=== PATIENT | female | born 1955 ===

== ENCOUNTER 2024-01-11 08:43 | Inpatient (IN) | payer OTHER ==
[~2024-01-11] VITALS: Wt 59.0 kg
[~2024-01-11 08:43] MED LIST: SIMVASTATIN5 MG; TENORMIN50 M1 PO; ZESTORETIC 20-1 EAC1 PO
[2024-01-19] MEDS ORDERED: DEXTROSE 50 % IN WATER 0.5 G/ML DISP.SYRIN IV PRN (15:45)
[2024-01-19] MEDS ORDERED: ONDANSETRON HCL 2 MG/ML VIAL IV PRN (15:45)
[2024-01-19] MEDS ORDERED: OxyCODONE HCL 5 MG TABLET (ROXICODONE) PO PRN (15:45)
[2024-01-19] MEDS ORDERED: MORPHINE SULFATE 4 MG/ML CARTRIDGE IV PRN (15:45)
[2024-01-19] MEDS ORDERED: 0.9 % SODIUM CHLORIDE 1,000 ML IV SCH (15:45)
[2024-01-19] MEDS ORDERED: GABAPENTIN 300 MG CAPSULE PO SCH (17:00)
[2024-01-19] MEDS ORDERED: POLYETHYLENE GLYCOL 3350 17 GM BLIST.PACK PO SCH (17:00)
[2024-01-19] MEDS ORDERED: HYOSCYAMINE SULFATE 0.125 MG TAB.SUBL SL SCH (17:00)
[2024-01-19] MEDS ORDERED: METRONIDAZOLE/SODIUM CHLORIDE 500 MG/100 ML PIGGYBACK IV SCH (17:00)
[2024-01-19] MEDS ORDERED: ENALAPRILAT DIHYDRATE 1.25 MG/ML VIAL IV PRN (17:45)
[2024-01-19] MEDS ORDERED: SUGAMMADEX SODIUM 200 MG/2 ML VIAL IV ONE (17:45)
[2024-01-19] MEDS ORDERED: BUPIVACAINE HCL 30 ML VIAL IJ ONE (18:15)
[2024-01-19] MEDS ORDERED: CEFTRIAXONE SODIUM 2,000 MG VIAL IV ONE (18:15)
[2024-01-19] MEDS ORDERED: LIDOCAINE HCL 1%/EPINEPHRINE 20ML VIAL IJ ONE (18:15)
[2024-01-19] MEDS ORDERED: METRONIDAZOLE/SODIUM CHLORIDE 500 MG/100 ML PIGGYBACK IV ONE (18:15)
[2024-01-19 19:48] LABS: HEMOGLOBIN 13.2 g/dL (12.0-15.00); MEAN CORPUSCULAR HEMOGLOBIN 31.8 pg (27.00-32.0); MEAN CORPUSCULAR HGB CONC 35.7 g/dl (32.0-36.0); PLATELET COUNT 192 K/uL (150-450); RED BLOOD COUNT 4.16 M/uL (4.00-6.00); RED CELL DISTRIBUTION WIDTH 12.8 % (11.5-14.5)
[2024-01-19] MEDS ORDERED: ACETAMINOPHEN 500 MG GEL..CAP PO SCH (20:00)
[2024-01-19 20:36] LABS: ALBUMIN 3.4 gm/dL (3.4-5.0); CALCIUM 8.4 mg/dL (8.5-10.1); CREATININE SERUM 0.62 mg/dL (0.55-1.02); GFR 95.72; MAGNESIUM 1.5 mg/dL (1.8-2.4); PHOSPHOROUS 3.3 mg/dL (2.5-4.9)
[2024-01-19 20:39] LABS: POTASSIUM 2.88 mEq/L (3.5-5.1)
[2024-01-19] MEDS ORDERED: POTASSIUM CHLORIDE 20MEQ/100ML H2O PB IV ONE (20:45)
[2024-01-19] MEDS ORDERED: FAMOTIDINE/PF 20 MG/2 ML VIAL IV PUSH SCH (21:00)
[2024-01-19] MEDS ORDERED: CELECOXIB 200 MG CAPSULE PO SCH (21:00)
[2024-01-19] MEDS ORDERED: MORPHINE SULFATE 4 MG/ML VIAL IV ONE (21:30)
[2024-01-20 01:21] VITALS: BP 140/61; O2SAT 100
[2024-01-20 06:59] LABS: HEMATOCRIT 34.4 % (36.0-45.00); HEMOGLOBIN 12.4 g/dL (12.0-15.00); MEAN CELL VOLUME 88.4 fL (80.00-100.00); MEAN CORPUSCULAR HEMOGLOBIN 31.9 pg (27.00-32.0); MEAN CORPUSCULAR HGB CONC 36.1 g/dl (32.0-36.0); PLATELET COUNT 172 K/uL (150-450); RED BLOOD COUNT 3.89 M/uL (4.00-6.00); RED CELL DISTRIBUTION WIDTH 12.7 % (11.5-14.5)
[2024-01-20 08:00] VITALS: BP 142/62; O2SAT 98
[2024-01-20 08:19] LABS: CALCIUM 7.8 mg/dL (8.5-10.1); CREATININE SERUM 0.57 mg/dL (0.55-1.02); GFR 105.48; PHOSPHOROUS 3.9 mg/dL (2.5-4.9); POTASSIUM 3.22 mEq/L (3.5-5.1)
[2024-01-20 08:26] LABS: MAGNESIUM 1.4 mg/dL (1.8-2.4)
[2024-01-20] MEDS ORDERED: LISINOPRIL 20 MG TABLET PO SCH (09:00)
[2024-01-20] MEDS ORDERED: HYDROCHLOROTHIAZIDE 25 MG TABLET PO SCH (09:00)
[2024-01-20] MEDS ORDERED: ATENOLOL 50 MG TABLET PO SCH (09:00)
[2024-01-20] MEDS ORDERED: POTASSIUM CHLORIDE 20MEQ/100ML H2O PB IV NR (11:00)
[2024-01-20] MEDS ORDERED: MAGNESIUM SULFATE IN WATER 50 ML IV NR (11:00)
[2024-01-20 16:00] VITALS: BP 118/60; O2SAT 97
[2024-01-20] MEDS ORDERED: SIMVASTATIN 10 MG TABLET PO SCH (17:00)
[2024-01-20] MEDS ORDERED: ENOXAPARIN SODIUM 40 MG/0.4 ML SYRINGE SUBCUTANEO SCH (17:00)
[2024-01-21 01:58] VITALS: BP 99/61; O2SAT 95
[2024-01-21 07:43] LABS: CALCIUM 7.7 mg/dL (8.5-10.1); CREATININE SERUM 0.45 mg/dL (0.55-1.02); GFR 138.56; MAGNESIUM 1.8 mg/dL (1.8-2.4); POTASSIUM 3.02 mEq/L (3.5-5.1)
[2024-01-21 07:56] LABS: HEMATOCRIT 31.2 % (36.0-45.00); HEMOGLOBIN 11.2 g/dL (12.0-15.00); MEAN CELL VOLUME 89.2 fL (80.00-100.00); MEAN CORPUSCULAR HGB CONC 35.8 g/dl (32.0-36.0); PLATELET COUNT 164 K/uL (150-450); RED BLOOD COUNT 3.49 M/uL (4.00-6.00); RED CELL DISTRIBUTION WIDTH 12.9 % (11.5-14.5)
[2024-01-21 08:00] VITALS: BP 170/70; O2SAT 98
[2024-01-21 08:01] LABS: PHOSPHOROUS 1.6 mg/dL (2.5-4.9)
[2024-01-21] MEDS ORDERED: POTASSIUM PHOS,M-BASIC-D-BASIC 3 MM/ML VIAL IV NR (08:30)
[2024-01-21] MEDS ORDERED: MAGNESIUM SULFATE IN WATER 50 ML IV NR (08:30)
[2024-01-21] MEDS ORDERED: ENOXAPARIN SODIUM 40 MG/0.4 ML SYRINGE SUBCUTANEO SCH (09:00)
[2024-01-21] MEDS ORDERED: POTASSIUM CHLORIDE 20MEQ/100ML H2O PB IV NR (10:00)
[2024-01-21 15:46] VITALS: BP 161/77; O2SAT 97
[2024-01-21] MEDS ORDERED: LISINOPRIL 20 MG TABLET PO STA (16:18)
[2024-01-21] MEDS ORDERED: ATENOLOL 50 MG TABLET PO STA (16:18)
[2024-01-22 01:15] VITALS: BP 106/55; O2SAT 100
[2024-01-22 08:00] VITALS: BP 137/68; O2SAT 95
[2024-01-22] MEDS ORDERED: LISINOPRIL 20 MG TABLET PO SCH (09:00)
[2024-01-22] MEDS ORDERED: ATENOLOL 50 MG TABLET PO SCH (09:00)
[2024-01-22] MEDS ORDERED: CELEBREX200MG PO (14:23)
[2024-01-22] MEDS ORDERED: HYOSCYAMINE0.125 M1 SL (14:23)
== END 2024-01-22 16:56 | disposition home or self-care (01) | DRG 331 ==
LOC: O/R 01-19 09:50 → SURH 01-19 11:15
PROVIDERS: Internal Medicine Geriatric Medicine; ADMIT Surgery; ATTEND Surgery
PROC: 0DNW4ZZ Release Peritoneum, Percutaneous Endoscopic Approach (ICD-10-PCS; 2024-01-19)
PROC: 0DBE4ZZ Excision of Large Intestine, Percutaneous Endoscopic Approach (ICD-10-PCS; 2024-01-19)
PROC: 0DTG4ZZ Resection of Left Large Intestine, Percutaneous Endoscopic Approach (ICD-10-PCS; principal; 2024-01-19 11:15)
DX: C18.4 Malignant neoplasm of transverse colon (principal); R59.0 Localized enlarged lymph nodes; R19.5 Other fecal abnormalities